=== PATIENT | male | born 1975 | race Caucasian/White ===

== ENCOUNTER → 2022-08-16 | Outpatient (CLI) | payer OTHER | END | disposition home or self-care (01) | LOC: LABMN 10:22 | PROVIDERS: ATTEND Internal Medicine | DX: R79.89 Other specified abnormal findings of blood chemistry (principal) | CPT/HCPCS: 84403 ==

== ENCOUNTER 2022-09-22 08:34 | Inpatient (IN) | payer OTHER ==
[~2022-09-22] VITALS: Ht 182.9 cm; Wt 99.0 kg
[2022-09-22 08:58] LABS: BASOPHILS % (AUTO) 0.2 % (0.0-2.0); EOSINOPHILS % (AUTO) 0.5 % (1.0-6.0); HEMATOCRIT 43.1 % (41-53); HEMOGLOBIN 14.4 g/dL (13.5-17.5); LYMPHOCYTES # (AUTO) 1.6 K/uL (1.0-4.8); LYMPHOCYTES % (AUTO) 12.3 % (22.0-44.0); MEAN CORPUSCULAR HEMOGLOBIN 28.2 pg (26.0-34.0); MEAN CORPUSCULAR HGB CONC 33.4 G/dL (31.0-37.0); MEAN CORPUSCULAR VOLUME 84 fL (80-100); MONOCYTES % (AUTO) 7.6 % (2.0-9.0); NEUTROPHILS # (AUTO) 10.5 K/uL (1.8-7.7); NEUTROPHILS % (AUTO) 79.4 % (40.0-70.0); PLATELET COUNT (AUTO) 232 K/uL (150-450); RED BLOOD CELL COUNT(AUTO) 5.12 MIL/uL (4.50-5.90); RED CELL DISTRIBUTION WIDTH 13.7 % (11.5-14.5)
[2022-09-22] MEDS ORDERED: SODIUM CHLORIDE 0.9% 100 ML ONE (09:00)
[2022-09-22] MEDS ORDERED: IOHEXOL 240 MG/ML 50 ML VIAL ONE (09:00)
[2022-09-22] MEDS ORDERED: IOHEXOL 350 MG/ML 100 ML VIAL ONE (09:00)
[2022-09-22] MEDS ORDERED: IOHEXOL 240 MG/ML 50 ML VIAL PO ONE (09:00)
[2022-09-22 09:08] LABS: ANION GAP 9 mmol/L (8-16); CALCIUM, TOTAL 9.1 mg/dL (8.8-10.5); CARBON DIOXIDE 28 mmol/L (22-29); CHLORIDE 98 mmol/L (98-107); CREATININE 1.26 mg/dL (0.60-1.30); GLOMERULAR FILTR. RATE CALC > 60 mL/min (>60); GLUCOSE,RANDOM 110 mg/dL (70-110); POTASSIUM 4.1 mmol/L (3.5-5.1); SODIUM SERUM 135 mmol/L (136-145)
[2022-09-22 09:13] LABS: ALANINE AMINOTRANSFERASE 32 U/L (12-78); ALBUMIN 3.3 g/dL (3.4-5.0); ALKALINE PHOSPHATASE 82 U/L (46-116); ASPARTATE AMINOTRANSFERASE 17 U/L (15-37); BILIRUBIN,TOTAL 0.7 mg/dL (0.1-1.0); TOTAL PROTEIN, SERUM 7.7 g/dL (6.4-8.2)
[2022-09-22] MEDS ORDERED: PIPERACILLIN/TAZO 3.375 GM/D5W 50 ML IV ONE (13:45)
[2022-09-22] MEDS ORDERED: MetroNIDAZOLE 750 MG/NACL 150 ML IV ONE (13:45)
[2022-09-22 16:00] VITALS: BP 131/89; PULSE 93; RESP 20; TEMP 97.7
[2022-09-22 16:46] LABS: INR 1.1 (0.9-1.1); PROTHROMBIN TIME 11.9 SEC (9.4-11.6)
[2022-09-22] MEDS ORDERED: MAGNESIUM HYDROXIDE SUSPENSION 30 ML UDCUP PO PRN (17:00)
[2022-09-22] MEDS ORDERED: ACETAMINOPHEN 325 MG TABLET PO PRN (17:00)
[2022-09-22] MEDS ORDERED: BISACODYL 10 MG RECTAL RECTAL SUPPOSITORY PR PRN (17:00)
[2022-09-22] MEDS ORDERED: MORPHINE SULFATE 2 MG/ML SYRINGE IVP PRN (17:00)
[2022-09-22] MEDS ORDERED: ONDANSETRON HCL 4 MG/2 ML VIAL IVP PRN (17:00)
[2022-09-22] MEDS ORDERED: ZOLPIDEM TARTRATE 5 MG TABLET PO PRN (17:00)
[2022-09-22] MEDS ORDERED: PEG 3350/NA SULF,BICARB,CL/KCL 4000 ML SOLUTION PO ONE (17:45)
[2022-09-22 20:32] VITALS: BP 122/76; PULSE 89; RESP 18; TEMP 97.9
[2022-09-22] MEDS ORDERED: SODIUM CHLORIDE 0.9% 500 ML IV ONE (20:36)
[2022-09-22] MEDS: PIPERACILLIN/TAZO 3.375 GM/D5W 50 ML IV SCH (20:39)
[2022-09-22] MEDS: DOCUSATE SODIUM 100 MG CAPSULE PO SCH (21:00)
[2022-09-23] MEDS: HEPARIN SODIUM,PORCINE 5,000 UNITS/ML VIAL SQ SCH ×4 (00:13→23:36)
[2022-09-23] MEDS: PIPERACILLIN/TAZO 3.375 GM/D5W 50 ML IV SCH ×4 (02:01→20:20)
[2022-09-23 06:24] VITALS: BP 130/81; PULSE 96; RESP 20; TEMP 98.4
[2022-09-23 06:58] LABS: ANION GAP 11 mmol/L (8-16); CALCIUM, TOTAL 8.9 mg/dL (8.8-10.5); CARBON DIOXIDE 26 mmol/L (22-29); CHLORIDE 101 mmol/L (98-107); CREATININE 1.18 mg/dL (0.60-1.30); GLOMERULAR FILTR. RATE CALC > 60 mL/min (>60); GLUCOSE,RANDOM 98 mg/dL (70-110); SODIUM SERUM 138 mmol/L (136-145)
[2022-09-23 07:00] LABS: BASOPHILS % (AUTO) 0.2 % (0.0-2.0); EOSINOPHILS % (AUTO) 0.9 % (1.0-6.0); HEMATOCRIT 41.8 % (41-53); HEMOGLOBIN 14.6 g/dL (13.5-17.5); LYMPHOCYTES # (AUTO) 1.2 K/uL (1.0-4.8); LYMPHOCYTES % (AUTO) 10.7 % (22.0-44.0); MEAN CORPUSCULAR HEMOGLOBIN 29.2 pg (26.0-34.0); MEAN CORPUSCULAR VOLUME 83 fL (80-100); MONOCYTES # (AUTO) 0.8 K/uL (0.1-1.0); MONOCYTES % (AUTO) 7.7 % (2.0-9.0); NEUTROPHILS # (AUTO) 8.8 K/uL (1.8-7.7); NEUTROPHILS % (AUTO) 80.5 % (40.0-70.0); PLATELET COUNT (AUTO) 240 K/uL (150-450); RED BLOOD CELL COUNT(AUTO) 5.02 MIL/uL (4.50-5.90); RED CELL DISTRIBUTION WIDTH 13.9 % (11.5-14.5)
[2022-09-23] MEDS ORDERED: LIDOCAINE 2% 6 ML JELLY TP ONE (07:00)
[2022-09-23 08:12] VITALS: BP 138/87; PULSE 105; RESP 20; TEMP 98.4
[2022-09-23] MEDS ORDERED: LIDOCAINE/PF 1% 30 ML VIAL ONE (08:21)
[2022-09-23] MEDS ORDERED: FLUMAZENIL 0.1 MG/ML 5 ML VIAL IVP ONE (08:21)
[2022-09-23] MEDS ORDERED: MIDAZOLAM HCL 2 MG/2 ML VIAL ONE (08:21)
[2022-09-23] MEDS ORDERED: NALOXONE HCL 0.4 MG/ML VIAL ONE (08:21)
[2022-09-23] MEDS ORDERED: FentaNYL CITRATE PF 100 MCG/2 ML VIAL ONE (08:21)
[2022-09-23] MEDS: DOCUSATE SODIUM 100 MG CAPSULE PO SCH ×2 (09:00→20:20)
[2022-09-23] MEDS ORDERED: SODIUM CHLORIDE 0.9% 1,000 ML IV ONE (11:00)
[2022-09-23] MEDS ORDERED: FentaNYL CITRATE PF 100 MCG/2 ML VIAL IVP ONE ×4 (11:15)
[2022-09-23] MEDS ORDERED: MIDAZOLAM HCL 2 MG/2 ML VIAL IVP ONE (11:15)
[2022-09-23] MEDS: PANTOPRAZOLE SODIUM 40 MG DR TABLET PO SCH (11:29)
[2022-09-23] MEDS: HYDROCODONE/ACETAMINOPHEN 5-325 MG TABLET PO PRN ×2 (11:30→19:35)
[2022-09-23 19:25] VITALS: BP 137/80; PULSE 96; RESP 20; TEMP 98.5
[2022-09-24] MEDS: PIPERACILLIN/TAZO 3.375 GM/D5W 50 ML IV SCH ×3 (02:49→13:28)
[2022-09-24 04:05] VITALS: BP 126/56; PULSE 103; RESP 18; TEMP 99.2
[2022-09-24 06:55] LABS: BASOPHILS % (AUTO) 0.2 % (0.0-2.0); EOSINOPHILS % (AUTO) 0.9 % (1.0-6.0); HEMATOCRIT 40.5 % (41-53); HEMOGLOBIN 13.7 g/dL (13.5-17.5); LYMPHOCYTES % (AUTO) 11.2 % (22.0-44.0); MEAN CORPUSCULAR HEMOGLOBIN 28.1 pg (26.0-34.0); MEAN CORPUSCULAR HGB CONC 33.8 G/dL (31.0-37.0); MEAN CORPUSCULAR VOLUME 83 fL (80-100); MONOCYTES # (AUTO) 0.7 K/uL (0.1-1.0); MONOCYTES % (AUTO) 8.3 % (2.0-9.0); NEUTROPHILS # (AUTO) 6.8 K/uL (1.8-7.7); NEUTROPHILS % (AUTO) 79.4 % (40.0-70.0); PLATELET COUNT (AUTO) 250 K/uL (150-450); RED BLOOD CELL COUNT(AUTO) 4.87 MIL/uL (4.50-5.90); RED CELL DISTRIBUTION WIDTH 13.8 % (11.5-14.5)
[2022-09-24 07:23] LABS: ANION GAP 11 mmol/L (8-16); CALCIUM, TOTAL 8.8 mg/dL (8.8-10.5); CARBON DIOXIDE 23 mmol/L (22-29); CHLORIDE 100 mmol/L (98-107); CREATININE 1.24 mg/dL (0.60-1.30); GLOMERULAR FILTR. RATE CALC > 60 mL/min (>60); GLUCOSE,RANDOM 84 mg/dL (70-110); POTASSIUM 3.9 mmol/L (3.5-5.1); SODIUM SERUM 134 mmol/L (136-145)
[2022-09-24 08:04] VITALS: BP 145/84; PULSE 97; RESP 18; TEMP 98.5
[2022-09-24] MEDS: DOCUSATE SODIUM 100 MG CAPSULE PO SCH (08:05)
[2022-09-24] MEDS: HYDROCODONE/ACETAMINOPHEN 5-325 MG TABLET PO PRN (08:05)
[2022-09-24] MEDS: HEPARIN SODIUM,PORCINE 5,000 UNITS/ML VIAL SQ SCH ×2 (08:05→16:17)
[2022-09-24] MEDS: PANTOPRAZOLE SODIUM 40 MG DR TABLET PO SCH (08:05)
[2022-09-24] MEDS ORDERED: SODIUM CHLORIDE 0.9% 500 ML IV ONE (08:18)
[2022-09-24] MEDS ORDERED: HYDR-4723 PO (13:20)
[2022-09-24] MEDS ORDERED: AMOX1TAB16 PO (13:27)
[2022-09-24 15:43] VITALS: BP 113/60; PULSE 94; RESP 18; TEMP 98.6
== END 2022-09-24 14:25 | disposition home or self-care (01) | DRG 391 ==
LOC: EMS 08:37 → 6N 15:19
PROVIDERS: ADMIT Internal Medicine; ATTEND Internal Medicine
PROC: 0W9G30Z Drainage of Peritoneal Cavity with Drainage Device, Percutaneous Approach (ICD-10-PCS; principal; 2022-09-23)
DX: K57.20 Diverticulitis of large intestine with perforation and abscess without bleeding (principal); K65.1 Peritoneal abscess; R65.10 Systemic inflammatory response syndrome (SIRS) of non-infectious origin without acute organ dysfunction; E87.1 Hypo-osmolality and hyponatremia
CPT/HCPCS: 51702; 74177; 75989; 80048; 80053; 85025; 85610; 87075; 87081; 87205; 99285; J1644; J2250; J2310; J2543; J3010; J3490; J7040; J7050; Q9966; Q9967

== ENCOUNTER → 2022-10-05 | Outpatient (CLI) | payer OTHER ==
[~2022-10-05] MED LIST: AMOX1TAB16 PO; HYDR-4723 PO
[2022-10-05 09:31] LABS: BASOPHILS % (AUTO) 0.4 % (0.0-2.0); EOSINOPHILS % (AUTO) 0.9 % (1.0-6.0); HEMATOCRIT 43.5 % (41-53); HEMOGLOBIN 14.7 g/dL (13.5-17.5); LYMPHOCYTES # (AUTO) 1.6 K/uL (1.0-4.8); MEAN CORPUSCULAR HGB CONC 33.9 G/dL (31.0-37.0); MEAN CORPUSCULAR VOLUME 83 fL (80-100); MONOCYTES # (AUTO) 0.3 K/uL (0.1-1.0); MONOCYTES % (AUTO) 4.3 % (2.0-9.0); NEUTROPHILS # (AUTO) 5.6 K/uL (1.8-7.7); NEUTROPHILS % (AUTO) 73.4 % (40.0-70.0); PLATELET COUNT (AUTO) 350 K/uL (150-450); RED BLOOD CELL COUNT(AUTO) 5.25 MIL/uL (4.50-5.90); RED CELL DISTRIBUTION WIDTH 13.6 % (11.5-14.5)
[2022-10-05 09:49] LABS: HEMOGLOBIN A1C 5.3 % (3.8-5.6)
[2022-10-05 09:59] LABS: ALANINE AMINOTRANSFERASE 40 U/L (12-78); ALBUMIN 3.3 g/dL (3.4-5.0); ALKALINE PHOSPHATASE 76 U/L (46-116); ANION GAP 13 mmol/L (8-16); ASPARTATE AMINOTRANSFERASE 21 U/L (15-37); BILIRUBIN,TOTAL 0.3 mg/dL (0.1-1.0); CALCIUM, TOTAL 9.3 mg/dL (8.8-10.5); CARBON DIOXIDE 28 mmol/L (22-29); CHLORIDE 99 mmol/L (98-107); CHOL/HDL RATIO 4.3 (4.2-7.3); CHOLESTEROL 149 mg/dL (131-200); CREATININE 1.11 mg/dL (0.60-1.30); GLOMERULAR FILTR. RATE CALC > 60 mL/min (>60); GLUCOSE,RANDOM 98 mg/dL (70-110); HDL CHOLESTEROL 35 mg/dL (40-60); LDL CHOL (CALC.) 100 mg/dL (0-130); POTASSIUM 4.1 mmol/L (3.5-5.1); SODIUM SERUM 140 mmol/L (136-145); THYROID STIMULATING HORMONE 2.21 uIU/mL (0.36-3.74); TOTAL PROTEIN, SERUM 7.8 g/dL (6.4-8.2); TRIGLYCERIDES 68 mg/dL (15-150)
[2022-10-05 10:15] LABS: VITAMIN B12 LEVEL 1541 pg/mL (211-911); VITAMIN D,TOTAL (25-0H) 37 ng/mL (30-100)
[2022-10-05 10:16] LABS: FOLATE SERUM > 24.0 ng/mL (5.4-)
== END | disposition home or self-care (01) ==
LOC: LABMN 09:04
PROVIDERS: ATTEND Internal Medicine Geriatric Medicine
DX: Z00.00 Encounter for general adult medical examination without abnormal findings (principal)
CPT/HCPCS: 80053; 80061; 82306; 82607; 82746; 83036; 84443; 85025

== ENCOUNTER → 2022-10-25 | Outpatient (CLI) | payer OTHER ==
[~2022-10-25] MED LIST changes: +FentaNYL CITRATE PF 100 MCG/2 ML VIAL IVP ONE; +FentaNYL CITRATE PF 100 MCG/2 ML VIAL ONE; +IOHEXOL 300 MG/ML 100 ML VIAL ONE; +LIDOCAINE/PF 1% 30 ML VIAL ONE; +MIDAZOLAM HCL 2 MG/2 ML VIAL ONE
== END | disposition home or self-care (01) ==
LOC: RADMN 11:06
PROVIDERS: ATTEND Surgery
DX: K57.32 Diverticulitis of large intestine without perforation or abscess without bleeding (principal)
CPT/HCPCS: 75984; J3010; J3490; Q9967; J2250

== ENCOUNTER 2022-11-16 05:54 | Inpatient (IN) | payer OTHER ==
[2022-11-15 10:24] LABS: BASOPHILS % (AUTO) 0.3 % (0.0-2.0); EOSINOPHILS % (AUTO) 1.1 % (1.0-6.0); HEMATOCRIT 46.1 % (41-53); HEMOGLOBIN 15.6 g/dL (13.5-17.5); LYMPHOCYTES # (AUTO) 1.6 K/uL (1.0-4.8); LYMPHOCYTES % (AUTO) 21.1 % (22.0-44.0); MEAN CORPUSCULAR HEMOGLOBIN 28.3 pg (26.0-34.0); MEAN CORPUSCULAR HGB CONC 33.9 G/dL (31.0-37.0); MEAN CORPUSCULAR VOLUME 83 fL (80-100); MONOCYTES # (AUTO) 0.4 K/uL (0.1-1.0); MONOCYTES % (AUTO) 5.2 % (2.0-9.0); NEUTROPHILS # (AUTO) 5.5 K/uL (1.8-7.7); NEUTROPHILS % (AUTO) 72.3 % (40.0-70.0); PLATELET COUNT (AUTO) 240 K/uL (150-450); RED BLOOD CELL COUNT(AUTO) 5.52 MIL/uL (4.50-5.90); RED CELL DISTRIBUTION WIDTH 14.4 % (11.5-14.5)
[2022-11-15 10:33] LABS: ANION GAP 11 mmol/L (8-16); CALCIUM, TOTAL 9.3 mg/dL (8.8-10.5); CARBON DIOXIDE 30 mmol/L (22-29); CHLORIDE 98 mmol/L (98-107); CREATININE 0.91 mg/dL (0.60-1.30); GLOMERULAR FILTR. RATE CALC > 60 mL/min (>60); GLUCOSE,RANDOM 96 mg/dL (70-110); POTASSIUM 4.5 mmol/L (3.5-5.1); SODIUM SERUM 139 mmol/L (136-145)
[2022-11-15 10:38] LABS: INR 1.1 (0.9-1.1); PROTHROMBIN TIME 11.1 SEC (9.4-11.6)
[~2022-11-16] VITALS: Ht 182.9 cm; Wt 90.0 kg
[~2022-11-16 05:54] MED LIST changes: +ACETAMINOPHEN 1000 MG/ISO-OSM 100 ML IV ONE; -AMOX1TAB16 PO; +CeFAZolin 2 GM/DEXTROSE 50 ML IV ONE; +ETHYL ALCOHOL 62% ANTISEPTIC NASAL SANITIZER 0.6 ML AMPUL NASAL ONE; -FentaNYL CITRATE PF 100 MCG/2 ML VIAL IVP ONE; -FentaNYL CITRATE PF 100 MCG/2 ML VIAL ONE; -HYDR-4723 PO; -IOHEXOL 300 MG/ML 100 ML VIAL ONE; -LIDOCAINE/PF 1% 30 ML VIAL ONE; -MIDAZOLAM HCL 2 MG/2 ML VIAL ONE; +MetroNIDAZOLE 500 MG/NACL 100 ML IV ONE; +RINGERS SOLUTION,LACTATED 1,000 ML IV ONE; +SODIUM PHOSPHATE,MONO-DIBASIC 133 ML ENEMA PR ONE
[2022-11-16] MEDS ORDERED: ACETAMINOPHEN 1000 MG/ISO-OSM 100 ML IV ONE (06:30)
[2022-11-16] MEDS ORDERED: BUPIVACAINE HCL/PF 0.5% 30 ML VIAL ONE (06:58)
[2022-11-16] MEDS ORDERED: BUPIVACAINE LIPOSOME/PF 1.3%-13.3MG/ML SUSPENSION 20 ML VIAL INJ ONE (07:00)
[2022-11-16] MEDS ORDERED: MetroNIDAZOLE 500 MG/NACL 100 ML IV ONE (07:00)
[2022-11-16] MEDS ORDERED: CeFAZolin 2 GM/DEXTROSE 50 ML IV ONE (07:00)
[2022-11-16] MEDS ORDERED: RINGERS SOLUTION,LACTATED 1,000 ML IV ONE ×2 (07:30→09:55)
[2022-11-16] MEDS ORDERED: SODIUM CHLORIDE 0.9% 1,000 ML ONE (08:19)
[2022-11-16] MEDS ORDERED: FentaNYL CITRATE PF 100 MCG/2 ML VIAL IVP PRN (10:00)
[2022-11-16] MEDS ORDERED: MEPERIDINE-PF 25 MG/ML VIAL IVP PRN (10:00)
[2022-11-16] MEDS ORDERED: HYDROmorphone HCL 2 MG/ML SYRINGE IVP PRN ×2 (10:00→11:15)
[2022-11-16] MEDS ORDERED: HYDROmorphone HCL 2 MG/ML SYRINGE IVP ONE (12:00)
[2022-11-16] MEDS ORDERED: PROPOFOL 1% 20 ML VIAL IVP ONE (12:00)
[2022-11-16] MEDS ORDERED: MIDAZOLAM HCL 2 MG/2 ML VIAL IVP ONE (12:00)
[2022-11-16] MEDS ORDERED: ONDANSETRON HCL 4 MG/2 ML VIAL IVP ONE (12:00)
[2022-11-16] MEDS ORDERED: ROCURONIUM BROMIDE 10 MG/ML 5 ML VIAL IVP ONE (12:00)
[2022-11-16] MEDS ORDERED: LIDOCAINE/PF 2% 5 ML VIAL IM ONE (12:00)
[2022-11-16] MEDS ORDERED: FentaNYL CITRATE PF 100 MCG/2 ML VIAL IVP ONE (12:00)
[2022-11-16] MEDS ORDERED: PHENYLEPHRINE HCL 10 MG/ML VIAL IVP ONE (12:00)
[2022-11-16] MEDS ORDERED: SUGAMMADEX SODIUM 200 MG/2 ML VIAL IVP ONE (12:00)
[2022-11-16] MEDS ORDERED: KETOROLAC TROMETHAMINE 60 MG/2 ML VIAL IM ONE (12:00)
[2022-11-16] MEDS ORDERED: DEXAMETHASONE SOD PHOS 4 MG/ML VIAL IVP ONE (12:00)
[2022-11-16] MEDS ORDERED: GLUCAGON,HUMAN RECOMBINANT 1 MG VIAL IVP ONE (12:00)
[2022-11-16] MEDS ORDERED: 0.9% SODIUM CHLORIDE 10 ML VIAL IVP ONE (12:00)
[2022-11-16 12:31] VITALS: BP 117/65; PULSE 97; RESP 19; TEMP 97.6
[2022-11-16] MEDS: RINGERS SOLUTION,LACTATED 1,000 ML IV SCH (14:05)
[2022-11-16] MEDS ORDERED: ONDANSETRON HCL 4 MG/2 ML VIAL IVP PRN (19:45)
[2022-11-16] MEDS ORDERED: IPRATROPIUM BROMIDE 0.5 MG/2.5 ML NEB SOLUTION NEB PRN (19:45)
[2022-11-16] MEDS ORDERED: CeFAZolin 2 GM/DEXTROSE 50 ML IV SCH (19:45)
[2022-11-16] MEDS ORDERED: MORPHINE SULFATE 2 MG/ML SYRINGE IVP PRN (19:45)
[2022-11-16] MEDS ORDERED: ZOLPIDEM TARTRATE 5 MG TABLET PO PRN (19:45)
[2022-11-16] MEDS ORDERED: MAGNESIUM HYDROXIDE SUSPENSION 30 ML UDCUP PO PRN (19:45)
[2022-11-16] MEDS ORDERED: ALBUTEROL SULFATE 2.5 MG/0.5 ML NEB SOLUTION NEB PRN (19:45)
[2022-11-16] MEDS ORDERED: BISACODYL 10 MG RECTAL RECTAL SUPPOSITORY PR PRN (19:45)
[2022-11-16] MEDS ORDERED: ACETAMINOPHEN 325 MG TABLET PO PRN (19:45)
[2022-11-16 19:57] VITALS: BP 139/68; PULSE 100; RESP 18; TEMP 98
[2022-11-16] MEDS: DOCUSATE SODIUM 100 MG CAPSULE PO SCH (21:00)
[2022-11-16] MEDS: PIPERACILLIN/TAZO 3.375 GM/D5W 50 ML IV SCH (21:17)
[2022-11-16] MEDS: HYDROCODONE/ACETAMINOPHEN 5-325 MG TABLET PO PRN (21:17)
[2022-11-16] MEDS: OXYGEN THERAPY IH SCH (21:18)
[2022-11-16] MEDS: MetroNIDAZOLE 500 MG/NACL 100 ML IV SCH (22:03)
[2022-11-16 22:25] VITALS: PULSE 99; RESP 18; O2SAT 97
[2022-11-16 22:40] VITALS: PULSE 100; RESP 18; O2SAT 99
[2022-11-17] VITALS (7 sets, daily range): BP systolic 110–138; BP diastolic 60–81; PULSE 80–108; RESP 18–19; TEMP 97.5–98
[2022-11-17] MEDS: PIPERACILLIN/TAZO 3.375 GM/D5W 50 ML IV SCH (02:29)
[2022-11-17] MEDS: HYDROCODONE/ACETAMINOPHEN 5-325 MG TABLET PO PRN ×4 (02:31→23:30)
[2022-11-17] MEDS: MetroNIDAZOLE 500 MG/NACL 100 ML IV SCH (05:36)
[2022-11-17 06:43] LABS: BASOPHILS % (AUTO) 0.2 % (0.0-2.0); EOSINOPHILS % (AUTO) 0.1 % (1.0-6.0); HEMATOCRIT 37.6 % (41-53); HEMOGLOBIN 12.9 g/dL (13.5-17.5); LYMPHOCYTES # (AUTO) 1.4 K/uL (1.0-4.8); LYMPHOCYTES % (AUTO) 11.3 % (22.0-44.0); MEAN CORPUSCULAR HEMOGLOBIN 28.5 pg (26.0-34.0); MEAN CORPUSCULAR HGB CONC 34.4 G/dL (31.0-37.0); MEAN CORPUSCULAR VOLUME 83 fL (80-100); MONOCYTES # (AUTO) 0.9 K/uL (0.1-1.0); MONOCYTES % (AUTO) 7.6 % (2.0-9.0); NEUTROPHILS # (AUTO) 9.6 K/uL (1.8-7.7); NEUTROPHILS % (AUTO) 80.8 % (40.0-70.0); PLATELET COUNT (AUTO) 214 K/uL (150-450); RED BLOOD CELL COUNT(AUTO) 4.54 MIL/uL (4.50-5.90); RED CELL DISTRIBUTION WIDTH 14.2 % (11.5-14.5)
[2022-11-17 07:16] LABS: ALANINE AMINOTRANSFERASE 12 U/L (12-78); ALBUMIN 2.5 g/dL (3.4-5.0); ALKALINE PHOSPHATASE 71 U/L (46-116); ANION GAP 5 mmol/L (8-16); ASPARTATE AMINOTRANSFERASE 13 U/L (15-37); CALCIUM, TOTAL 8.2 mg/dL (8.8-10.5); CARBON DIOXIDE 28 mmol/L (22-29); CHLORIDE 101 mmol/L (98-107); CREATININE 0.98 mg/dL (0.60-1.30); GLOMERULAR FILTR. RATE CALC > 60 mL/min (>60); GLUCOSE,RANDOM 103 mg/dL (70-110); POTASSIUM 3.8 mmol/L (3.5-5.1); SODIUM SERUM 134 mmol/L (136-145); TOTAL PROTEIN, SERUM 5.9 g/dL (6.4-8.2)
[2022-11-17] MEDS: OXYGEN THERAPY IH SCH ×2 (09:30→20:42)
[2022-11-17] MEDS: HEPARIN SODIUM,PORCINE 5,000 UNITS/ML VIAL SQ SCH ×3 (09:31→23:19)
[2022-11-17] MEDS: PANTOPRAZOLE SODIUM 40 MG/VIAL IVP SCH (09:31)
[2022-11-17] MEDS: AMOX TR/POT CLAV 875 MG/125 MG TABLET PO SCH ×2 (09:31→20:41)
[2022-11-17] MEDS: DOCUSATE SODIUM 100 MG CAPSULE PO SCH ×2 (09:32→20:45)
[2022-11-17] MEDS: RINGERS SOLUTION,LACTATED 1,000 ML IV SCH (11:44)
[2022-11-18 04:00] VITALS: BP 127/73; PULSE 84; RESP 18; TEMP 98.1
[2022-11-18 06:15] VITALS: BP 118/66; PULSE 84; RESP 18; TEMP 97.9
[2022-11-18 07:05] LABS: BASOPHILS % (AUTO) 0.2 % (0.0-2.0); EOSINOPHILS % (AUTO) 1.8 % (1.0-6.0); HEMATOCRIT 37.9 % (41-53); HEMOGLOBIN 12.9 g/dL (13.5-17.5); LYMPHOCYTES # (AUTO) 1.7 K/uL (1.0-4.8); LYMPHOCYTES % (AUTO) 17.1 % (22.0-44.0); MEAN CORPUSCULAR HEMOGLOBIN 28.4 pg (26.0-34.0); MEAN CORPUSCULAR HGB CONC 33.9 G/dL (31.0-37.0); MEAN CORPUSCULAR VOLUME 84 fL (80-100); MONOCYTES # (AUTO) 0.7 K/uL (0.1-1.0); MONOCYTES % (AUTO) 7.5 % (2.0-9.0); NEUTROPHILS # (AUTO) 7.2 K/uL (1.8-7.7); NEUTROPHILS % (AUTO) 73.4 % (40.0-70.0); PLATELET COUNT (AUTO) 189 K/uL (150-450); RED BLOOD CELL COUNT(AUTO) 4.53 MIL/uL (4.50-5.90); RED CELL DISTRIBUTION WIDTH 14.2 % (11.5-14.5)
[2022-11-18 07:11] LABS: ANION GAP 7 mmol/L (8-16); CALCIUM, TOTAL 8.2 mg/dL (8.8-10.5); CARBON DIOXIDE 28 mmol/L (22-29); CHLORIDE 104 mmol/L (98-107); CREATININE 0.77 mg/dL (0.60-1.30); GLOMERULAR FILTR. RATE CALC > 60 mL/min (>60); GLUCOSE,RANDOM 84 mg/dL (70-110); POTASSIUM 3.9 mmol/L (3.5-5.1); SODIUM SERUM 139 mmol/L (136-145)
[2022-11-18] MEDS: HEPARIN SODIUM,PORCINE 5,000 UNITS/ML VIAL SQ SCH (08:00)
[2022-11-18] MEDS: PANTOPRAZOLE SODIUM 40 MG/VIAL IVP SCH (08:40)
[2022-11-18] MEDS: AMOX TR/POT CLAV 875 MG/125 MG TABLET PO SCH (08:40)
[2022-11-18] MEDS: DOCUSATE SODIUM 100 MG CAPSULE PO SCH (08:40)
[2022-11-18] MEDS: OXYGEN THERAPY IH SCH (08:41)
[2022-11-18] MEDS: RINGERS SOLUTION,LACTATED 1,000 ML IV SCH (11:55)
[2022-11-18 11:58] VITALS: BP 132/79; PULSE 94; RESP 16; TEMP 98.6
[2022-11-18] MEDS: HYDROCODONE/ACETAMINOPHEN 5-325 MG TABLET PO PRN (12:27)
[2022-11-18] MEDS ORDERED: AMOX1TAB16 PO (13:57)
[2022-11-18] MEDS ORDERED: ALBU2.5V39 NEB (13:57)
[2022-11-18] MEDS ORDERED: HYDR-4723 PO (13:57)
[2022-11-19] MEDS ORDERED: ONDA-104 PO (09:18)
[2022-11-19] MEDS ORDERED: HYDR-4723 PO (09:18)
== END 2022-11-18 16:05 | disposition home or self-care (01) | DRG 329 ==
LOC: 6N 05:54 → 5S 12:15
PROVIDERS: ADMIT Surgery; ATTEND Hospitalist
PROC: 0W9G0ZZ Drainage of Peritoneal Cavity, Open Approach (ICD-10-PCS; 2022-11-16)
PROC: 0DJD8ZZ Inspection of Lower Intestinal Tract, Via Natural or Artificial Opening Endoscopic (ICD-10-PCS; 2022-11-16)
PROC: 0DBN4ZZ Excision of Sigmoid Colon, Percutaneous Endoscopic Approach (ICD-10-PCS; principal; 2022-11-16 07:30)
DX: K63.2 Fistula of intestine (principal); K63.1 Perforation of intestine (nontraumatic); K65.1 Peritoneal abscess; Z90.49 Acquired absence of other specified parts of digestive tract
CPT/HCPCS: 80048; 80053; 85025; 85610; 85730; 87081; 88307; 93005; 94640; C9113; C9290; J0131; J0690; J1100; J1170; J1610; J1644; J1885; J2250; J2370; J2405; J2543; J2704; J3010; J3490; J7030; J7120; Q9967

== ENCOUNTER 2022-11-19 07:22 | Emergency (ER) | payer OTHER ==
[~2022-11-19] VITALS: Ht 182.9 cm; Wt 79.5 kg
[~2022-11-19 07:22] MED LIST changes: -ACETAMINOPHEN 1000 MG/ISO-OSM 100 ML IV ONE; +ALBU2.5V39 NEB; +AMOX1TAB16 PO; -CeFAZolin 2 GM/DEXTROSE 50 ML IV ONE; -ETHYL ALCOHOL 62% ANTISEPTIC NASAL SANITIZER 0.6 ML AMPUL NASAL ONE; +HYDR-4723 PO; -MetroNIDAZOLE 500 MG/NACL 100 ML IV ONE; -RINGERS SOLUTION,LACTATED 1,000 ML IV ONE; -SODIUM PHOSPHATE,MONO-DIBASIC 133 ML ENEMA PR ONE
[2022-11-19 07:30] VITALS: BP 142/92; PULSE 106; RESP 18; TEMP 98.6
[2022-11-19] MEDS ORDERED: ONDANSETRON HCL 4 MG/2 ML VIAL IVP ONE (08:00)
[2022-11-19] MEDS ORDERED: SODIUM CHLORIDE 0.9% 1,000 ML IV ONE (08:00)
[2022-11-19 08:23] LABS: BASOPHILS % (AUTO) 0.1 % (0.0-2.0); EOSINOPHILS % (AUTO) 0.3 % (1.0-6.0); HEMOGLOBIN 14.7 g/dL (13.5-17.5); LYMPHOCYTES # (AUTO) 0.9 K/uL (1.0-4.8); LYMPHOCYTES % (AUTO) 8.3 % (22.0-44.0); MEAN CORPUSCULAR HEMOGLOBIN 28.4 pg (26.0-34.0); MEAN CORPUSCULAR HGB CONC 34.1 G/dL (31.0-37.0); MEAN CORPUSCULAR VOLUME 83 fL (80-100); MONOCYTES # (AUTO) 0.5 K/uL (0.1-1.0); MONOCYTES % (AUTO) 4.6 % (2.0-9.0); NEUTROPHILS # (AUTO) 9.6 K/uL (1.8-7.7); PLATELET COUNT (AUTO) 236 K/uL (150-450); RED BLOOD CELL COUNT(AUTO) 5.15 MIL/uL (4.50-5.90); RED CELL DISTRIBUTION WIDTH 14.4 % (11.5-14.5)
[2022-11-19 08:32] LABS: NEUTROPHILS % (AUTO) 86.7 % (40.0-70.0)
[2022-11-19 08:34] LABS: ANION GAP 9 mmol/L (8-16); CALCIUM, TOTAL 8.8 mg/dL (8.8-10.5); CARBON DIOXIDE 26 mmol/L (22-29); CHLORIDE 100 mmol/L (98-107); CREATININE 0.62 mg/dL (0.60-1.30); GLOMERULAR FILTR. RATE CALC > 60 mL/min (>60); GLUCOSE,RANDOM 111 mg/dL (70-110); POTASSIUM 3.9 mmol/L (3.5-5.1); SODIUM SERUM 135 mmol/L (136-145)
[2022-11-19 08:42] LABS: LACTIC ACID 0.6 mmol/L (0.4-2.0)
[2022-11-19] MEDS ORDERED: AMOX TR/POT CLAV 875 MG/125 MG TABLET PO ONE (08:45)
[2022-11-19] MEDS ORDERED: HYDROCODONE/ACETAMINOPHEN 5-325 MG TABLET PO ONE (08:45)
[2022-11-19 08:48] LABS: ALANINE AMINOTRANSFERASE 12 U/L (12-78); ALBUMIN 2.7 g/dL (3.4-5.0); ALKALINE PHOSPHATASE 62 U/L (46-116); ASPARTATE AMINOTRANSFERASE 13 U/L (15-37); BILIRUBIN,TOTAL 0.5 mg/dL (0.1-1.0); LIPASE 34 U/L (16-77); TOTAL PROTEIN, SERUM 6.8 g/dL (6.4-8.2)
[2022-11-19] MEDS ORDERED: HYDR-4723 PO (09:18)
[2022-11-19] MEDS ORDERED: ONDA-104 PO (09:18)
== END 2022-11-19 10:12 | disposition home or self-care (01) ==
LOC: EMS 07:23
DX: R10.30 Lower abdominal pain, unspecified (principal); K57.20 Diverticulitis of large intestine with perforation and abscess without bleeding; G89.18 Other acute postprocedural pain
CPT/HCPCS: 99283; 96374; 96361; 80053; 83605; 83690; 85025; 36415; J2405; J7030

== ENCOUNTER → 2023-01-12 | Outpatient (CLI) | payer OTHER ==
[~2023-01-12] MED LIST changes: +ONDA-104 PO
[2023-01-12 11:50] LABS: HEMATOCRIT 45.9 % (41-53); HEMOGLOBIN 15.5 g/dL (13.5-17.5); MEAN CORPUSCULAR HEMOGLOBIN 28.5 pg (26.0-34.0); MEAN CORPUSCULAR HGB CONC 33.8 G/dL (31.0-37.0); MEAN CORPUSCULAR VOLUME 84 fL (80-100); PLATELET COUNT (AUTO) 223 K/uL (150-450); RED BLOOD CELL COUNT(AUTO) 5.45 MIL/uL (4.50-5.90); RED CELL DISTRIBUTION WIDTH 14.8 % (11.5-14.5)
== END | disposition home or self-care (01) ==
LOC: LABMN 11:10
PROVIDERS: ATTEND Internal Medicine
DX: R79.89 Other specified abnormal findings of blood chemistry (principal)
CPT/HCPCS: 84153; 84403; 85027